=== PATIENT | male | born 1970 | race Caucasian/White ===

== ENCOUNTER 2017-11-15 17:07 | Emergency (ER) | payer BC, OTHER ==
[2017-11-15 17:22] VITALS: BP 130/79; PULSE 94; TEMP 100.3; BMI 25.8
[2017-11-15] MEDS ORDERED: KETOROLAC TROMETHAMINE 60 MG/2 ML VIAL IM ONE (18:30)
[2017-11-15] MEDS ORDERED: KETOROLAC TROMETHAMINE 60 MG/2 ML VIAL ONE (18:32)
--- NOTE | 2017-11-15 18:35 | PDOC ---
History of Present Illness - General Chief Complaint: Respiratory Stated Complaint: CHILLS, FEVER, CHEST PAIN Time Seen by Provider: 11/15/17 18:15 History Source: Patient Exam Limitations: No Limitations - History of Present Illness Initial Comments: 11/15/17 18:30 Patient states daughter was diagnosed with influenza last week, was prescribed Tamiflu but did not take it because family was worried about side effects. Patient stated had onset of symptoms himself yesterday with fevers, chills, sore throat pain. Moist cough and significant body pain started today. States was seen at [place] [facility] yesterday was flu and strep tested which results were negative. Patient has taken Tylenol but states symptoms are worsening. Timing/Duration: reports: other, getting worse Severity: reports: mild, moderate Associated Symptoms: reports: chest pain/soreness, cough, facial pain, fever/ chills, muscle aches, nasal congestion, nasal drainage Past History - Travel Traveled outside of the country in the last 30 days: No Close contact w/someone who was outside of country & ill: No - Past Medical History Allergies/Adverse Reactions: Allergies Allergy/AdvReac Type Severity Reaction Status Date / Time hydromorphone HCl Allergy Verified 11/15/17 17:21 [From Dilaudid] Home Medications: Ambulatory Orders Oseltamivir Phosphate [Tamiflu -] 75 mg PO BID #10 capsule 11/15/17 Anemia: Yes COPD: No GI Disorders: Yes (DIVERTICULITIS.) - Suicide/Smoking/Psychosocial Hx Smoking History: Never smoked Have you smoked in the past 12 months: No If you are a former smoker, when did you quit?: 1997 Information on smoking cessation initiated: No Hx Alcohol Use: No (OCCAISONAL) Drug/Substance Use Hx: No Substance Use Type: None Hx Substance Use Treatment: No Review of Systems - Review of Systems Able to Perform ROS?: Yes Is the patient limited Macedonian proficient: Yes Constitutional: Yes: Symptoms Reported, See HPI, Chills, Fever, Loss of Appetite , Malaise HEENTM: Yes: Symptoms Reported, See HPI, Hearing Loss, Throat Pain Respiratory: Yes: Symptoms reported, See HPI, Cough, Shortness of Breath, Wheezing : No: Symptoms Reported Musculoskeletal: Yes: Symptoms Reported, See HPI Integumentary: Yes: Symptoms Reported, See HPI All Other Systems: Reviewed and Negative *Physical Exam - Vital Signs Last Vital Signs Temp Pulse Resp BP Pulse Ox 100.3 F H 94 H 18 130/79 98 11/15/17 17:15 11/15/17 17:15 11/15/17 17:15 11/15/17 17:15 11/15/17 17:15 - Physical Exam General Appearance: Yes: Nourished, Appropriately Dressed, Apparent Distress, Mild Distress, Moderate Distress HEENT: positive: KIP (glassy), TMs Normal (congested), Pharyngeal Erythema, Nasal Congestion, Rhinorrhea, Sinus Tenderness. negative: Normal ENT Inspection , Pharynx Normal Neck: positive: Supple, Lymphadenopathy (R), Lymphadenopathy (L) Respiratory/Chest: positive: Lungs Clear, Normal Breath Sounds. negative: Wheezing Gastrointestinal/Abdominal: positive: Soft. negative: Tender Musculoskeletal: positive: Normal Inspection Extremity: positive: Normal Capillary Refill, Normal Inspection Integumentary: positive: Dry, Warm, Pale Neurologic: positive: compliance clerk II-XII NML intact, Fully Oriented, Alert, Normal Mood/ Affect, Normal Response, Motor Strength 02/07 Progress Note - Progress Note Progress Note: Upper respiratory infection, probable influenza. We'll treat with Tamiflu *DC/Admit/Observation/Transfer Diagnosis at time of Disposition: Influenzal acute upper respiratory infection - Discharge Dispostion Disposition: HOME Condition at time of disposition: Stable Admit: No - Prescriptions Prescriptions: Oseltamivir Phosphate [Tamiflu -] 75 mg PO BID #10 capsule - Referrals Referrals: Micahel Echols MD [Primary Care Provider] - - Patient Instructions Printed Discharge Instructions: DI for Influenza -- Adult Additional Instructions: Rest, drink lots of fluids: Teas, water, soups, Pedialyte Saltwater gargles Steamy showers/seem to face break up mucus Old-fashioned treatments help! Avoid contact with others until fevers and cough resolved as this is very contagious Lots of handwashing and good hygiene Continue [id number] medications for symptomatic relief Tylenol or Motrin for fever and pain Take all of Tamiflu as directed: 1 tab every 12 hours for 5 days Followup with private physician in one to 2 days as needed or if worsening Return to emergency department for worsened symptoms, fevers, dehydration Influenza takes between 5 and 7 days for resolution To not participate in any activity, work, or school until fevers and cough are gone for at least one day - Post Discharge Activity Forms/Work/School Notes: Back to Work
--- NOTE | 2017-11-19 11:02 | EKG ---
Test Reason : Blood Pressure : / mmHG Vent. Rate : 088 BPM Atrial Rate : 088 BPM P-R Int : 148 ms QRS Dur : 086 ms QT Int : 334 ms P-R-T Axes : 044 022 032 degrees QTc Int : 404 ms NORMAL SINUS RHYTHM NORMAL ECG WHEN COMPARED WITH ECG OF 17-FEB-2015 11:59, NO SIGNIFICANT CHANGE WAS FOUND Confirmed by LIDA ALCALA MD ([id number]) on 11/19/2017 11:02:02 AM Referred By: Confirmed By:LIDA ALCALA MD
== END 2017-11-15 18:38 | disposition home or self-care (01) ==
LOC: JERFT 17:07
DX: J11.1 Influenza due to unidentified influenza virus with other respiratory manifestations (principal)
CPT/HCPCS: 93005; 93010; 99281-25

== ENCOUNTER 2018-03-22 14:09 | Emergency (ER) | payer OTHER ==
--- NOTE | 2018-03-22 14:28 | PDOC ---
History of Present Illness - General Chief Complaint: Electrocution Stated Complaint: . Time Seen by Provider: 03/22/18 14:27 - History of Present Illness Initial Comments: 03/22/18 14:32 Mr. Her is a 47 yo male w/ pmh of colitis who presents for evaluation after being electrocuted earlier today. Patient reports he was working in the attic when a wire he thought was off hit him in the back. He did not lose consciousness however reports he is currently very weak. He reports this wire was from a fan and was likely 120V, AC. Mr. Her reports he currently has midline chest pain and back pain in the same location. The patient denies chest pain, shortness of breath, headache and dizziness. Denies fever, chills, nausea, vomit, diarrhea and constipation. Denies dysuria, frequency, urgency and hematuria. Allergies: Hydromorphone. Past History - Past Medical History Allergies/Adverse Reactions: Allergies Allergy/AdvReac Type Severity Reaction Status Date / Time hydromorphone HCl Allergy Verified 11/15/17 17:21 [From Dilaudid] Home Medications: Ambulatory Orders NK [No Known Home Medication] 03/22/18 Anemia: Yes COPD: No GI Disorders: Yes (DIVERTICULITIS.) - Suicide/Smoking/Psychosocial Hx Smoking History: Never smoked Have you smoked in the past 12 months: No If you are a former smoker, when did you quit?: 1997 Hx Alcohol Use: No (OCCAISONAL) Drug/Substance Use Hx: No Substance Use Type: None Hx Substance Use Treatment: No Review of Systems - Review of Systems Comments:: 03/22/18 14:36 GENERAL/CONSTITUTIONAL: No fever or chills. No weakness. HEAD, EYES, EARS, NOSE AND THROAT: No change in vision. No ear pain or discharge. No sore throat. CARDIOVASCULAR: No chest pain or shortness of breath RESPIRATORY: No cough, wheezing, or hemoptysis. GASTROINTESTINAL: No nausea, vomiting, diarrhea or constipation. GENITOURINARY: No dysuria, frequency, or change in urination. MUSCULOSKELETAL: No joint or muscle swelling or pain. No neck or back pain. SKIN: No rash NEUROLOGIC: No headache, vertigo, loss of consciousness, or change in strength/ sensation. ENDOCRINE: No increased thirst. No abnormal weight change HEMATOLOGIC/LYMPHATIC: No anemia, easy bleeding, or history of blood clots. ALLERGIC/IMMUNOLOGIC: No hives or skin allergy. *Physical Exam - Physical Exam Comments: 03/22/18 14:36 GENERAL: Awake, alert, and fully oriented, in no acute distress HEAD: No signs of trauma, normocephalic, atraumatic EYES: PERRLA, EOMI, sclera anicteric, conjunctiva clear ENT: Auricles normal inspection, hearing grossly normal, nares patent, oropharynx clear without exudates. Moist mucosa NECK: Normal ROM, supple, no lymphadenopathy, JVD, or masses LUNGS: +Midline chest pain. T4 tenderness to back. No distress, speaks full sentences, clear to auscultation bilaterally HEART: Regular rate and rhythm, normal S1 and S2, no murmurs, rubs or gallops, peripheral pulses normal and equal bilaterally. ABDOMEN: Soft, nontender, normoactive bowel sounds. No guarding, no rebound. No masses EXTREMITIES: Normal inspection, Normal range of motion, no edema. No clubbing or cyanosis. NEUROLOGICAL: Cranial nerves II through XII grossly intact. Normal speech, normal gait, no focal sensorimotor deficits SKIN: Warm, Dry, normal turgor, no rashes or lesions noted. ED Treatment Course - LABORATORY CBC & Chemistry Diagram: 03/22/18 14:48 03/22/18 14:48 Medical Decision Making - Medical Decision Making 03/22/18 15:15 Mr. Her is a 47 yo male w/ pmh as described who presents for evaluation post electrocution. Patient currently reporting midline chest pain and back pain as described. Due to concerns of unknown damage post electrocution, patient transfer initiated to [facility]. Patient currently accepted to [facility], patient workup started otherwise with XR imaging and basic labs. Fluids running at 200ml /hr ( 1L) per request of [facility] physician. *DC/Admit/Observation/Transfer Diagnosis at time of Disposition: Electrocution - Discharge Dispostion Disposition: TRANSFER ACUTE CARE/OTHER HOSP Condition at time of disposition: Guarded - Referrals Referrals: Michael Echols MD [Primary Care Provider] - - Patient Instructions - Post Discharge Activity
[2018-03-22 14:29] VITALS: BMI 25.0
[2018-03-22] MEDS ORDERED: SODIUM CHLORIDE 1,000 ML IV STA (14:31)
--- NOTE | 2018-03-22 14:50 | PDOC ---
Attending Attestation - Resident Resident Name: Rene Morgan - ED Attending Attestation I have performed the following: I have examined & evaluated the patient, The case was reviewed & discussed with the resident, I agree w/resident's findings & plan, Exceptions are as noted - Critical Care Time Total Critical Care Time: 30 Critical Care Statement: The care of this patient involved high complexity decision making to prevent further life threatening deterioration of the patient 's condition and/or to evaluate & treat vital organ system(s) failure or risk of failure. - Medical Decision Making 03/22/18 14:50 I, Dr. Britany Eaton, DO, attest that this document has been prepared under my direction and personally reviewed by me in its entirety. I further attest, that it accurately reflects all work, treatment, procedures and medical decision -making performed by me. 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 -will monitor on tele -pain control -ivf hydration -no head injury, no loc, but appears mildly "out of it" 03/22/18 15:[address] Melo from [facility] BURN recommends labs, ua, tele, xrays accepts pt in transfer to ED 03/22/18 15:45 EMS here for transfer cbc reviewed other labs are pending <Britany Eaton - Last Filed: 03/22/18 15:45> - HPI HPI: 03/22/18 16:02 The patient is a 47 year old male with a significant PMH of colitis who presents to the emergency department s/p electrocution earlier today. The patient reports that he was at home removing a screw from a ceiling fan when he was electrocuted on his back by one of the wires hanging from the fan. The patient reports that he didnt realize that the light power was still on when he was fixing it. The patient denies any loc, weakness, numbness or tingling sensation. He states that he is now experiencing chest pain and back pain. He denies any other symptoms. He denies fever, chills, nausea, vomit, diarrhea, constipation or urinary symptoms. He denies shortness of breath, headache and dizziness. The patient denies any other complaints. Allergies: Hydromorphone. PCP: [facility] - Physicial Exam PE: 03/22/18 16:02 As per resident note. Documentation prepared by Geeta Bull, acting as medical appliance maker for Britany Eaton MD. <Geeta Bull - Last Filed: 03/22/18 16:03> Discharge Disposition - Discharge Dispostion Last Admission D/C Date: 02/20/15 - Transfer to Acute Care Facility Receiving Facility: [facility]. Accepting Physician:: Dr. Melo <Britany Eaton - Last Filed: 03/22/18 15:45> <Geeta Bull - Last Filed: 03/22/18 16:03> - Diagnosis Electrocution - Discharge Dispostion Disposition: TRANSFER ACUTE CARE/OTHER HOSP Condition at time of disposition: Guarded - Referrals Referrals: Michael Echols MD [Primary Care Provider] - - Patient Instructions - Post Discharge Activity Heart Score/ECG Review - ECG Intrepretation Comment:: 03/22/18 15:08 sinus at 80, nl axis, nl interval, no acute st/t wave findings <Britany Eaton - Last Filed: 03/22/18 15:45>
[2018-03-22 14:55] LABS: HEMATOCRIT 43.6 % (35.4-49); HEMOGLOBIN 14.6 GM/dL (11.7-16.9); LYMPH % 37.8 % (8-40); MCHC 33.6 g/dl (32.0-35.9); MEAN CELL VOLUME 89.4 fl (80-96); MEAN PLT VOLUME 9.3 fl (7.5-11.1); MONO % 6.8 % (3.8-10.2); NEUT % 53.4 % (42.8-82.8); PLATELET COUNT 221 K/MM3 (134-434); RBC 4.88 M/mm3 (4.00-5.60); RDW 13.2 % (11.9-15.9); WHITE BLOOD COUNT 6.7 K/mm3 (4.0-10.0)
[2018-03-22] MEDS ORDERED: ACETAMINOPHEN 1000 MG/100 ML VIAL (NON FORMULARY) IVPB ONE (14:56)
[2018-03-22] MEDS ORDERED: ACETAMINOPHEN INJECTION 100 ML IVPB ONE (14:57)
[2018-03-22 15:34] LABS: URINE APPEARANCE CLEAR; URINE BILIRUBIN NEGATIVE (<2.0 mg/dL); URINE COLOR YELLOW; URINE GLUCOSE (UA) NEGATIVE (NEGATIVE); URINE KETONE NEGATIVE (NEGATIVE); URINE LEUK ESTERASE NEGATIVE (NEGATIVE); URINE NITRITE NEGATIVE (NEGATIVE); URINE PROTEIN NEGATIVE (NEGATIVE); URINE UROBILINOGEN NEGATIVE mg/dL (0.2-1.0)
[2018-03-22 15:51] VITALS: TEMP 98.1
[2018-03-22 15:56] LABS: ANION GAP 7 (8-16); BILIRUBIN,TOTAL 0.8 mg/dL (0.2-1.0); BLOOD UREA NITROGEN 20 mg/dL (7-18); CALCIUM 8.8 mg/dL (8.5-10.1); CHLORIDE 103 mmol/L (98-107); CO2 29 mmol/L (21-32); CREATININE 1.1 mg/dL (0.7-1.3); GLUCOSE,RANDOM 126 mg/dL (74-106); POTASSIUM 3.7 mmol/L (3.5-5.1); SGOT/AST 22 U/L (15-37); SGPT/ALT 36 U/L (12-78); SODIUM 139 mmol/L (136-145); TOT PROT 7.3 g/dl (6.4-8.2)
[2018-03-22] MEDS: SODIUM CHLORIDE 1,000 ML IV SCH ×2 (15:57→16:04)
[2018-03-22 15:58] LABS: ALK PHOS 45 U/L (45-117)
[2018-03-22 16:00] VITALS: BP 121/68; PULSE 71
--- NOTE | 2018-03-22 19:40 | EKG ---
Test Reason : Blood Pressure : / mmHG Vent. Rate : 080 BPM Atrial Rate : 080 BPM P-R Int : 148 ms QRS Dur : 090 ms QT Int : 376 ms P-R-T Axes : 046 031 049 degrees QTc Int : 433 ms NORMAL SINUS RHYTHM WITH SINUS ARRHYTHMIA NORMAL ECG WHEN COMPARED WITH ECG OF 15-NOV-2017 17:17, NO SIGNIFICANT CHANGE WAS FOUND Confirmed by LIDA ALCALA MD ([id number]) on 03/22/2018 7:39:53 PM Referred By: Confirmed By:LIDA ALCALA MD
== END 2018-03-22 16:00 | disposition short-term general hospital (02) ==
LOC: JER 14:09
PROC: 3E0337Z Introduction of Electrolytic and Water Balance Substance into Peripheral Vein, Percutaneous Approach (ICD-10-PCS; principal; 2018-03-22)
PROC: 3E033NZ Introduction of Analgesics, Hypnotics, Sedatives into Peripheral Vein, Percutaneous Approach (ICD-10-PCS; 2018-03-22)
DX: T75.4XXA Electrocution, initial encounter (principal); W86.0XXA Exposure to domestic wiring and appliances, initial encounter; Y93.89 Activity, other specified; Y92.018 Other place in single-family (private) house as the place of occurrence of the external cause; Y99.8 Other external cause status
CPT/HCPCS: 36415; 71045-TC-FY; 72070-TC-FY; 80053; 81003; 82550; 84484; 85025; 93005; 93010; 99285-25; J0131; J7030

== ENCOUNTER 2018-07-09 01:30 | Observation (INO) | payer OTHER ==
--- NOTE | 2018-07-09 01:58 | PDOC ---
History of Present Illness - General Chief Complaint: Syncope/Near Syncope Stated Complaint: SYNCOPE, CHEST PAIN Time Seen by Provider: 07/09/18 01:43 - History of Present Illness Initial Comments: 07/09/18 01:55 47-year-old male with no significant past medical history BIBEMS to the emergency Department with chest discomfort and syncopal episode. Patient reports he was sleeping about an hour and a half ago when he woke up, began to feel palpitations, and went to the bathroom and sat on the toilet. The patient reports the next thing he remembers is waking up face down on the ground. His reports hearing a loud that in the bathroom and finding her face down on the bathroom floor. She reports he had LOC for a little bit less than a minute. Denies any urinary incontinence or stool incontinence. Denies any shaking movements. Denies any tongue biting. Patient reports since falling he's had nasal pain as well as continued left-sided chest discomfort. Denies headache before or after LOC. Per EMS the patient was hypotensive to the 80s systolic in the field, with improvement in the 90s systolic after initiating a bolus of fluids. The patient denies any similar symptoms in the past. Has been on a new pain medication for back pain but does not know which one. Denies any recent travel. 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 Denies any recent fevers or chills. Denies coughing. Denies dizziness, nausea, vomiting. Denies abdominal pain. Denies lower extremity edema or calf pain. Denies any drug or tobacco use. Past History - Past Medical History Allergies/Adverse Reactions: Allergies Allergy/AdvReac Type Severity Reaction Status Date / Time hydromorphone HCl Allergy Verified 07/09/18 04:47 [From Dilaudid] Home Medications: Ambulatory Orders NK [No Known Home Medication] 03/22/18 Anemia: Yes COPD: No GI Disorders: Yes (DIVERTICULITIS.) - Suicide/Smoking/Psychosocial Hx Smoking History: Never smoked Have you smoked in the past 12 months: No If you are a former smoker, when did you quit?: 1997 Hx Alcohol Use: No (OCCAISONAL) Drug/Substance Use Hx: No Substance Use Type: None Hx Substance Use Treatment: No Review of Systems - Review of Systems Comments:: 07/09/18 02:13 GENERAL/CONSTITUTIONAL: No fever or chills. No weakness. HEAD, EYES, EARS, NOSE AND THROAT: No change in vision. No ear pain or discharge. No sore throat. GASTROINTESTINAL: No nausea, vomiting, diarrhea or constipation. GENITOURINARY: No dysuria, frequency, or change in urination. CARDIOVASCULAR: +chest pain, no shortness of breath. +palpitations RESPIRATORY: No cough, wheezing, or hemoptysis. MUSCULOSKELETAL: No joint or muscle swelling or pain. No neck or back pain. SKIN: No rash NEUROLOGIC: No headache, vertigo, or change in strength/sensation. +LOC ENDOCRINE: No increased thirst. No abnormal weight change. HEMATOLOGIC/LYMPHATIC: No anemia, easy bleeding, or history of blood clots. ALLERGIC/IMMUNOLOGIC: No hives or skin allergy. *Physical Exam - Physical Exam Comments: 07/09/18 02:32 GENERAL: Awake, alert, and fully oriented, in no acute distress HEAD: +mild nasal bridge edema EYES: PERRLA, EOMI, sclera anicteric, conjunctiva clear ENT: Auricles normal inspection, hearing grossly normal, nares patent, oropharynx clear without exudates. Moist mucosa NECK: c-collar in place LUNGS: Breath sounds equal, clear to auscultation bilaterally. No wheezes, and no crackles HEART: Regular rate and rhythm, normal S1 and S2, no murmurs, rubs or gallops ABDOMEN: Soft, nontender, normoactive bowel sounds. No guarding, no rebound. No masses EXTREMITIES: Normal range of motion, no edema. No clubbing or cyanosis. No cords , erythema, or tenderness BACK: No midline spinal tenderness in cervical/thoracic/lumbar region NEUROLOGICAL: Normal speech, cranial nerves intact, negative pronator drift, 5/ 5 strength in all 4 extremities, normal sensation to light touch in all 4 extremities, normal cerebellar exam, normal gait, normal reflexes and tone SKIN: Warm, Dry, normal turgor, no rashes or lesions noted. Heart Score/ECG Review #1 07/09/18 02:41 Twelve-lead EKG was performed and reviewed by me. Sinus bradycardia, rate 52. Normal axis and intervals. No ST elevations or T-wave inversions. ED Treatment Course - LABORATORY CBC & Chemistry Diagram: 07/09/18 04:32 07/09/18 04:32 - RADIOLOGY Radiology Studies Ordered: Category Date Time Status CERVICAL SPINE CT W/O CONTR [CT] Stat CT Scan 07/09/18 01:53 Ordered CHEST CTA [CT] Stat CT Scan 07/09/18 01:[address] W/O CONTRAST [CT] Stat CT Scan 07/09/18 01:[address] WITHOUT CONTRAST [CT] Stat CT Scan 07/09/18 01:53 Ordered CHEST X-RAY PORTABLE* [RAD] Stat Radiology 07/09/18 01:54 Ordered Medical Decision Making - Medical Decision Making 07/09/18 02:42 47yo M presents to the ED with palpitations, followed by syncopal episode. Initially hypotensive in the field, now BP in 100s systolic. Exam with some nasal bridge edema, and pt in c-collar, otherwise wnl. Story concerning for arrhythmia causing syncope given preceding palpitations. 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 Will obtain CTA. WIll do trauma w/u, check labs, and admit for cardiac monitoring. 07/09/18 07:29 CTH, facial bones negative CT c-spine and CTA chest pending Pt stable overnight, awaiting remainder of studies prior to admission Case signed out to day attending for f/u on diagnostics and dispo *DC/Admit/Observation/Transfer Diagnosis at time of Disposition: Chest pain, Palpitations, Syncope - Discharge Dispostion Condition at time of disposition: Fair - Referrals - Patient Instructions - Post Discharge Activity - Attestations Physician Attestion: 07/09/18 07:31 I, Dr. Kali Knott MD, attest that this document has been prepared under my direction and personally reviewed by me in its entirety. I further attest, that it accurately reflects all work, treatment, procedures and medical decision -making performed by me.
[2018-07-09 04:42] LABS: BASO % 0.2 % (0-2.0); EOS % 0.5 % (0-4.5); HEMOGLOBIN 13.8 GM/dL (11.7-16.9); LYMPH % 14.7 % (8-40); MCH 29.9 pg (25.7-33.7); MCHC 33.6 g/dl (32.0-35.9); MEAN PLT VOLUME 9.5 fl (7.5-11.1); MONO % 5.2 % (3.8-10.2); NEUT % 79.4 % (42.8-82.8); PLATELET COUNT 184 K/MM3 (134-434); RBC 4.61 M/mm3 (4.00-5.60); RDW 13.2 % (11.9-15.9); WHITE BLOOD COUNT 9.9 K/mm3 (4.0-10.0)
[2018-07-09 05:18] LABS: ALBUMIN 3.5 g/dl (3.4-5.0); ALK PHOS 38 U/L (45-117); ANION GAP 6 MMOL/L (8-16); BILIRUBIN,TOTAL 0.4 mg/dL (0.2-1); BLOOD UREA NITROGEN 22 mg/dL (7-18); CALCIUM 8.2 mg/dL (8.5-10.1); CHLORIDE 107 mmol/L (98-107); CO2 26 mmol/L (21-32); CREATININE 0.9 mg/dL (0.55-1.3); GLUCOSE,RANDOM 123 mg/dL (74-106); MAGNESIUM 2.1 mg/dL (1.8-2.4); POTASSIUM 3.8 mmol/L (3.5-5.1); SGOT/AST 20 U/L (15-37); SGPT/ALT 25 U/L (13-61); SODIUM 139 mmol/L (136-145); TOT PROT 6.4 g/dl (6.4-8.2)
[2018-07-09] MEDS ORDERED: ACETAMINOPHEN 1000 MG/100 ML VIAL (NON FORMULARY) IVPB ONE (07:34)
[2018-07-09] MEDS ORDERED: ACETAMINOPHEN INJECTION 100 ML IVPB ONE (08:48)
[2018-07-09] MEDS ORDERED: KETOROLAC TROMETHAMINE 30 MG/1 ML VIAL IVPUSH ONE (11:56)
[2018-07-09] MEDS ORDERED: KETOROLAC TROMETHAMINE 30 MG/1 ML VIAL ONE (12:04)
--- NOTE | 2018-07-09 12:48 | HP ---
CHIEF COMPLAINT: syncope, chest pain PCP: HISTORY OF PRESENT ILLNESS: Patient is a 47 year old male with a significant past medical history of chronic back pain. He presents to the ED today for chest discomfort and a syncopal episode. Patient reports that he began to feel his heart palpitating early today and went to the bathroom and sat on the toilet. He had a small BM but does not remember anything after that. The next thing he does remembers was waking up face down and hearing his tell him that she called EMS. Denies any shaking or tremors. Denies incontinence, denies any tongue biting. Patient reports since falling he's had nasal pain as well as continued left- sided chest discomfort. Per EMS the patient was hypotensive to the 80s systolic in the field, with improvement in the 90s systolic after a bolus of fluids. Denies any recent travel. Denies any recent fevers or chills. 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 ER course was notable for: (1) negative trop (2) negative for PE (3) Recent Travel: none PAST MEDICAL HISTORY: Social History: Smoking: n/a Alcohol: n/a Drugs: n/a Family History: Allergies hydromorphone HCl [From Dilaudid] Allergy (Verified 07/09/18 04:47) HOME MEDICATIONS: Home Medications Medication Instructions Recorded Celecoxib 200 mg PO DAILY 07/09/18 REVIEW OF SYSTEMS CONSTITUTIONAL: Absent: fever, chills, diaphoresis, generalized weakness, malaise, loss of appetite, weight change HEENT: Absent: rhinorrhea, nasal congestion, throat pain, throat swelling, difficulty swallowing, mouth swelling, ear pain, eye pain, visual changes CARDIOVASCULAR: Absent: lightheadedness, peripheral edema RESPIRATORY: Absent: dyspnea with exertion, orthopnea, wheezing, stridor, hemoptysis GASTROINTESTINAL: Absent: abdominal pain, abdominal distension, nausea, vomiting, diarrhea, constipation, melena, hematochezia GENITOURINARY: Absent: dysuria, frequency, urgency, hesitancy, hematuria, flank pain, genital pain MUSCULOSKELETAL: Absent: myalgia, arthralgia, joint swelling, back pain, neck pain SKIN: Absent: rash, itching, pallor HEMATOLOGIC/IMMUNOLOGIC: Absent: easy bleeding, easy bruising, lymphadenopathy, frequent infections ENDOCRINE: Absent: unexplained weight loss, heat intolerance, cold intolerance NEUROLOGIC: Absent: headache, focal weakness or paresthesias, dizziness, unsteady gait, seizure, mental status changes, bladder or bowel incontinence PSYCHIATRIC: Absent: anxiety, depression, suicidal or homicidal ideation, hallucinations. PHYSICAL EXAMINATION Vital Signs - 24 hr 07/09/18 07/09/18 07/09/18 01:55 04:33 07:02 Temperature 97.4 F L 98.4 F Pulse Rate 55 L Pulse Rate [ 70 103 H Left Radial] Respiratory 18 19 21 H Rate Blood Pressure 107/78 Blood Pressure 124/76 112/82 [Right Arm] O2 Sat by Pulse 100 98 94 L Oximetry (%) GENERAL: Awake, alert, and fully oriented, in no acute distress. HEAD: Normal with no signs of trauma. EYES: Pupils equal, round and reactive to light, extraocular movements intact, sclera anicteric, conjunctiva clear. No lid lag. EARS, NOSE, THROAT: Ears normal, nares patent, oropharynx clear without exudates. Moist mucous membranes. NECK: Normal range of motion, supple without lymphadenopathy, JVD, or masses. LUNGS: Breath sounds equal, clear to auscultation bilaterally. No wheezes, and no crackles. No accessory muscle use. HEART: Regular rate and rhythm, normal S1 and S2 without murmur, rub or gallop. ABDOMEN: Soft, nontender, not distended, normoactive bowel sounds, no guarding, no rebound, no masses. No hepatomegaly or splenomegaly. MUSCULOSKELETAL: Normal range of motion at all joints. No bony deformities or tenderness. No CVA tenderness. UPPER EXTREMITIES: 2+ pulses, warm, well-perfused. No cyanosis. No clubbing. No peripheral edema. LOWER EXTREMITIES: 2+ pulses, warm, well-perfused. No calf tenderness. No peripheral edema. NEUROLOGICAL: Cranial nerves II-XII intact. Normal speech. Normal gait. PSYCHIATRIC: Cooperative. Good eye contact. Appropriate mood and affect. SKIN: Warm, dry, normal turgor, no rashes or lesions noted, normal capillary refill. Laboratory Results - last 24 hr 07/09/18 07/09/18 07/09/18 04:32 04:32 04:32 WBC 9.9 RBC 4.61 Hgb 13.8 Hct 41.0 MCV 89.0 MCH 29.9 MCHC 33.6 RDW 13.2 Plt Count 184 MPV 9.5 Absolute Neuts (auto) 7.9 Neutrophils % 79.4 D Lymphocytes % 14.7 D Monocytes % 5.2 Eosinophils % 0.5 Basophils % 0.2 Nucleated RBC % 0 Sodium 139 Potassium 3.8 Chloride 107 Carbon Dioxide 26 Anion Gap 6 L BUN 22 H Creatinine 0.9 Creat Clearance w eGFR > 60 Random Glucose 123 H Calcium 8.2 L Magnesium 2.1 Total Bilirubin 0.4 AST 20 ALT 25 Alkaline Phosphatase 38 L Troponin I < 0.02 B-Natriuretic Peptide 19.2 Total Protein 6.4 Albumin 3.5 TSH 1.33 07/09/18 12:02 WBC RBC Hgb Hct MCV MCH MCHC RDW Plt Count MPV Absolute Neuts (auto) Neutrophils % Lymphocytes % Monocytes % Eosinophils % Basophils % Nucleated RBC % Sodium Potassium Chloride Carbon Dioxide Anion Gap BUN Creatinine Creat Clearance w eGFR Random Glucose Calcium Magnesium Total Bilirubin AST ALT Alkaline Phosphatase Troponin I < 0.02 B-Natriuretic Peptide Total Protein Albumin TSH Imaging ekg: NSR, normal no ST elevations chest xray: clear lungs CTA: no PE CT head: no acute pathology ASSESSMENT/PLAN: Patient is a 47 year old male with a significant past medical history of chronic back pain. He presents to the ED today for chest discomfort and a syncopal episode. Patient reports that he began to feel his heart palpitating early today and went to the bathroom and sat on the toilet. He had a small BM but does not remember anything after that. The next thing he does remembers was waking up face down and hearing his tell him that she called EMS. Denies any shaking or tremors. Denies incontinence, denies any tongue biting. Patient reports since falling he's had nasal pain as well as continued left- sided chest discomfort. Per EMS the patient was hypotensive to the 80s systolic in the field, with improvement in the 90s systolic after a bolus of fluids. Denies any recent travel. Denies any recent fevers or chills. 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 Syncope and collapse Chest pain ekg within normal limits trend trops echo stress test telemonitoring carotid doppler fen fredi
[2018-07-09] MEDS ORDERED: LIDOCAINE 5% TOPICAL PATCH TP ONE (15:58)
--- NOTE | 2018-07-09 16:57 | CON.CARD ---
Consult Consult Specialty:: cardio - History of Present Illness Chief Complaint: syncope History of Present Illness: 47 yo male here with syncope. he woke up in bed feeling heart rapidly beating--regular, no skipping. strong/bounding heartbeat. lay in bed like that for a minute or few minutes--palpitations still ongoing. got up to go to bathroom. sat on toilet and recalls urinating--woke up on floor with over him, near the toilet, with her saying EMS is on its way. began having similar palpitations around age 20, in the . seen by doctos who "didn't find anything" per pt, no meds. father has heart dz, ? similar problem--palpitations/rapid heartbeat, on meds. no ICD or CHF. pt denies family hx of sudden or known chf/heart dz. father and grandmother of CEREBRAL ANEURYSM he never passed out before this. but once he was driving and felt very LH, vision started to go dark--resolved promptly. 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 no cp, sob associated with any of these episodes. never has sx's during exercise including no paliptations or presyncope/syncope. has had L/S region muscle pain, pmd (apuzzo) gave analgesic patch and celecoxib which pt started yesterday PMH: denies htn, hpl, dm no cigs, drugs, etoh abuse - Past Medical History Gastrointestinal: Yes: Diverticulosis, Other (POSSIBLE COLITIS) - Alcohol/Substance Use Hx Alcohol Use: No (OCCAISONAL) - Smoking History Smoking history: Never smoked Have you smoked in the past 12 months: No If you are a former smoker, when did you quit?: 1997 Home Medications - Allergies Allergies/Adverse Reactions: Allergies Allergy/AdvReac Type Severity Reaction Status Date / Time hydromorphone HCl Allergy Verified 07/09/18 04:47 [From Dilaudid] - Home Medications Home Medications: Ambulatory Orders Celecoxib 200 mg PO DAILY 07/09/18 Family Disease History - Family Disease History Family Disease History: Diabetes: Father, Mother, Other: Grandparent (Colitis) Review of Systems - Review of Systems Constitutional: denies: Chills, Fever Eyes: denies: Eye Pain HENT: denies: Nasal Congestion Neck: denies: Stiffness Cardiovascular: denies: Edema Respiratory: denies: Orthopnea, PND Gastrointestinal: denies: Diarrhea, Rectal Bleeding Genitourinary: denies: Burning, Hematuria Musculoskeletal: denies: Muscle Pain Integumentary: denies: Rash Neurological: denies: Change in Speech, Numbness, Seizure Endocrine: denies: Excessive Sweating Hematology/Lymphatic: denies: Excessive Bleeding Vital Signs: Vital Signs Temperature 98.8 F 07/09/18 15:39 Pulse Rate 69 07/09/18 15:39 Respiratory Rate 18 07/09/18 15:39 Blood Pressure 113/71 07/09/18 15:39 O2 Sat by Pulse Oximetry (%) 96 07/09/18 15:39 Constitutional: Yes: Well Nourished, No Distress Eyes: No: Sclera Icterus HENT: No: Nasal Congestion Neck: No: Decreased ROM Respiratory: Yes: CTA Bilaterally. No: Accessory Muscle Use Gastrointestinal: Yes: Normal Bowel Sounds. No: Distention, Hepatomegaly, Palpable Mass, Tenderness Cardiovascular: Yes: Regular Rate and Rhythm JVD: No Carotid Bruit: No PMI: Non-Displaced Heart Sounds: Yes: S1, S2. No: Gallop Murmur: No: Systolic Murmur, Diastolic Murmur Musculoskeletal: Yes: Other (No kyphosis) Extremities: No: Cool, Cyanosis Edema: No Peripheral Pulses: 2+ Left Carotid, 2+ Right Carotid, 2+ Left Doralis Pedis, 2+ Right Dorsalis Pedis Integumentary: No: Jaundice Neurological: Yes: Alert, Oriented (x3) Psychiatric: No: Agitated - Other Data Labs, Other Data: CBC, BMP 07/09/18 04:32 07/09/18 04:32 Troponin, BNP 07/09/18 07/09/18 07/09/18 04:32 04:32 12:02 Troponin I < 0.02 < 0.02 B-Natriuretic Peptide 19.2 Troponin, BNP 07/09/18 07/09/18 07/09/18 04:32 04:32 12:02 Troponin I < 0.02 < 0.02 B-Natriuretic Peptide 19.2 Laboratory Tests 07/09/18 07/09/18 07/09/18 04:32 04:32 04:32 WBC 9.9 Hgb 13.8 Plt Count 184 Sodium 139 Potassium 3.8 Carbon Dioxide 26 BUN 22 H Creatinine 0.9 AST 20 ALT 25 Troponin I < 0.02 B-Natriuretic Peptide 19.2 07/09/18 12:02 WBC Hgb Plt Count Sodium Potassium Carbon Dioxide BUN Creatinine AST ALT Troponin I < 0.02 B-Natriuretic Peptide Assessment/Plan ECG: NSR, normal axis/intervals including QTc. no q waves, no ST-Ts. no Brugada or ARVC features CXR: clear lungs CTA chest: no PE CT head: no acute pathology syncope: -normal ECG incl normal intervals -trop neg x 2 -episode preceded by palpitations with rapid heartbeat for at least couple of minutes--? palpitations ONGOING at time of syncope -this history, plus no prodrome to the syncope, raises possibility of ventricular arrhthmia. -father with unknown arrhythmia history but apparently no malignant features -pt needs echo for EF and RV appearance, for risk stratification before he can be discharged -continue telemetry monitoring overnight -recommend ETT to rule out catecholaminergic sensitive/provocable VT -if echo and ETT, and tele benign--will arrange outpt 30 day patch or loop recorder
[2018-07-09] MEDS ORDERED: ASPIRIN COATED 81 MG TABLET.EC ONE (17:04)
[2018-07-09] MEDS ORDERED: LIDOCAINE 5% TOPICAL PATCH ONE (17:04)
[2018-07-09] MEDS: ASPIRIN COATED 81 MG TABLET.EC PO SCH (17:09)
--- NOTE | 2018-07-09 21:55 | EKG ---
Test Reason : Blood Pressure : / mmHG Vent. Rate : 052 BPM Atrial Rate : 052 BPM P-R Int : 162 ms QRS Dur : 098 ms QT Int : 442 ms P-R-T Axes : 051 026 036 degrees QTc Int : 411 ms SINUS BRADYCARDIA OTHERWISE NORMAL ECG WHEN COMPARED WITH ECG OF 22-MAR-2018 14:18, VENT. RATE HAS DECREASED BY 28 BPM Confirmed by BEENA ALVAREZ MD ([id number]) on 07/09/2018 9:55:08 PM Referred By: Confirmed By:BEENA ALVAREZ MD
[2018-07-09] MEDS ORDERED: LIDOCAINE PATCH REMOVAL MC SCH (22:00)
[2018-07-09 22:04] LABS: COCAINE, UR NEGATIVE ng/ml (CUTOFF=300); METHADONE, UR NEGATIVE ng/ml (CUTOFF=300); OPIATES, URI NEGATIVE ng/ml (CUTOFF=300); PHENCYCLIDINE,URINE NEGATIVE ng/ml (CUTOFF=25); URINE AMPHETAMINES NEGATIVE ng/ml (CUTOFF=500); URINE BARBITURATES NEGATIVE ng/ml (CUTOFF=200); URINE BENZODIAZEPINES NEGATIVE ng/ml (CUTOFF=200)
[2018-07-09] MEDS: KETOROLAC TROMETHAMINE 15 MG/ML VIAL IVPUSH PRN (22:55)
[2018-07-09 23:32] VITALS: BMI 25.4
[2018-07-10 07:04] LABS: HEMOGLOBIN 13.5 GM/dL (11.7-16.9)
[2018-07-10 07:24] LABS: BASO % 0.3 % (0-2.0); EOS % 1.6 % (0-4.5); HEMATOCRIT 40.7 % (35.4-49); LYMPH % 31.1 % (8-40); MCH 29.5 pg (25.7-33.7); MCHC 33.1 g/dl (32.0-35.9); MEAN PLT VOLUME 9.9 fl (7.5-11.1); MONO % 8.3 % (3.8-10.2); NEUT % 58.7 % (42.8-82.8); PLATELET COUNT 165 K/MM3 (134-434); RBC 4.57 M/mm3 (4.00-5.60); RDW 13.2 % (11.9-15.9)
[2018-07-10 07:26] LABS: ALBUMIN 3.4 g/dl (3.4-5.0); ALK PHOS 34 U/L (45-117); ANION GAP 6 MMOL/L (8-16); BILIRUBIN,TOTAL 0.8 mg/dL (0.2-1); BLOOD UREA NITROGEN 25 mg/dL (7-18); CHLORIDE 106 mmol/L (98-107); CHOLESTEROL 160 mg/dL (50-200); CO2 28 mmol/L (21-32); CREATININE 0.9 mg/dL (0.55-1.3); GLUCOSE,RANDOM 88 mg/dL (74-106); HDL CHOLESTEROL 39 mg/dL (40-60); MAGNESIUM 2.2 mg/dL (1.8-2.4); SGOT/AST 18 U/L (15-37); SGPT/ALT 25 U/L (13-61); SODIUM 141 mmol/L (136-145); TOT PROT 6.1 g/dl (6.4-8.2); TRIGLYCERIDES 161 mg/dL (0-150)
[2018-07-10] MEDS: KETOROLAC TROMETHAMINE 15 MG/ML VIAL IVPUSH PRN ×2 (09:15→16:54)
--- NOTE | 2018-07-10 10:04 | ECHO ---
Name: CLAIRE HERNÁNDEZ Exam:Adult Echocardiogram Study Date: 07/10/2018 07:42 AM Age: 47 yrs Reason For Study: SYNCOPE Height: 67 in Weight: 160 lb BSA: 1.8 m2 MMode/2D Measurements & Calculations IVSd: 1.1 cm Ao root diam: 3.0 cm LVIDd: 4.0 cm LA dimension: 3.2 cm LVIDs: 2.3 cm LVPWd: 0.85 cm EDV(Teich): 69.1 ml LAV (MOD-bp): 32.7 ml ESV(Teich): 17.9 ml Doppler Measurements & Calculations MV E max fernando: 76.6 cm/sec MR max fernando: 419.7 cm/sec MV A max fernando: 66.0 cm/sec MR max P.0 mmHg MV E/A: 1.2 MV dec time: 0.23 sec TR max fernando: 195.8 cm/sec Med Peak E' Fernando: 9.8 cm/sec TR max P.6 mmHg Med E/e': 7.8 Lat Peak E' Fernando: 15.3 cm/sec Lat E/e': 5.0 PI Vmax: 156.1 cm/sec Left Ventricle Left ventricular systolic function is normal. Ejection Fraction = 60-65%. Left Ventricular Filling pa ttern is normal for age. Right Ventricle The right ventricle is normal in size and function. Atria Normal left and right atrial size and function. Mitral Valve The mitral valve is normal in structure and function. There is no mitral valve stenosis. There is mil d mitral regurgitation. Tricuspid Valve The tricuspid valve is normal in structure and function. There is mild tricuspid regurgitation. Aortic Valve The aortic valve opens well. The aortic valve is trileaflet. No hemodynamically significant valvular aortic stenosis. No aortic regurgitation is present. Pulmonic Valve The pulmonic valve is not well seen, but is grossly normal. There is no pulmonic valvular stenosis. T race to mild pulmonic valvular regurgitation. Great Vessels The aortic root is normal size. Pericardium/Pleura There is no pericardial effusion. Interpretation Summary Left ventricular systolic function is normal. Ejection Fraction = 60-65%. The right ventricle is normal in size and function. There is mild mitral regurgitation. There is mild tricuspid regurgitation. The aortic valve opens well. There is no pericardial effusion. MD Bertrand Barnett 07/10/2018 10:04 AM
--- NOTE | 2018-07-10 13:00 | PN ---
Progress Note (short form) - Note Progress Note: s: felt skipped heart beat this morning lasting a second, otherwise no palps. no chest pain, dizzy, lightheadedness, sob Current Medications Aspirin (Ecotrin -) 81 mg PO DAILY MARION Last Admin: 07/09/18 17:09 Dose: 81 mg Ketorolac Tromethamine (Toradol Injection -) 15 mg IVPUSH Q6H PRN PRN Reason: PAIN LEVEL 7 - 10 Stop: 07/14/18 22:36 Last Admin: 07/10/18 09:15 Dose: 15 mg Vital Signs: Vital Signs Period Temp Pulse Resp BP Sys/Fowler Pulse Ox Last 24 Hr 98 F-98.8 F 61-88 18-20 108-121/60-76 96-100 Constitutional: Yes: Well Nourished, No Distress Eyes: No: Sclera Icterus HENT: No: Nasal Congestion Neck: No: Decreased ROM Respiratory: Yes: CTA Bilaterally. No: Accessory Muscle Use Gastrointestinal: Yes: Normal Bowel Sounds. No: Distention, Hepatomegaly, Palpable Mass, Tenderness Cardiovascular: Yes: Regular Rate and Rhythm JVD: No Carotid Bruit: No PMI: Non-Displaced Heart Sounds: Yes: S1, S2. No: Gallop Murmur: No: Systolic Murmur, Diastolic Murmur Musculoskeletal: Yes: Other (No kyphosis) Extremities: No: Cool, Cyanosis Edema: No Peripheral Pulses: 2+ Left Carotid, 2+ Right Carotid, 2+ Left Doralis Pedis, 2+ Right Dorsalis Pedis Integumentary: No: Jaundice Neurological: Yes: Alert, Oriented (x3) Psychiatric: No: Agitated Assessment/Plan ECG: NSR, normal axis/intervals including QTc. no q waves, no ST-Ts. no Brugada or ARVC features CXR: clear lungs CTA chest: no PE CT head: no acute pathology tele: sinus rhythm syncope: -normal ECG incl normal intervals -trop neg x 2 -episode preceded by palpitations with rapid heartbeat for at least couple of minutes--? palpitations ONGOING at time of syncope -this history, plus no prodrome to the syncope, raises possibility of ventricular arrhythmia. -father with unknown arrhythmia history but apparently no malignant features - echo unremarkable, stress test to rule out catecholaminergic sensitive/ provocable VT is pending -continue telemetry monitoring overnight -if ETT and tele benign--will arrange outpt 30 day patch or loop recorder
--- NOTE | 2018-07-10 14:39 | TRE ---
Protocol Name : JUNE Max Work Load (METS*10) : 101 Time In Exercise Phase : 00:08:03 Max. Systolic BP : 142 mmHg Max Diastolic BP : 80 mmHg Max Heart Rate : 151 BPM Max Predicted Heart Rate : 175 BPM Attending Physician : DR. PEDRO Reason For Termination : Target Heart Rate Achieved Reason for Test : PALPITATIONS WITH SYNCOPE Stress Protocol : JUNE Rest HR : 82 BPM PeakEx METs : 10.1 METS Recovery ECG Response (OLD) : Diagnosis : The patient completed 8:03 of a standard June Protocol achieving a work load of 10 METS. The resting heart rate of 67bpm alfonzo to a peak of 151bpm, 86% of age predicted maximum. The resting BP of 106/78 alfonzo to a peak of 142/80. The test was stopped due to achievement of target heart rate. There were no ischemic ST changes during exercise nor during recovery. No arrhythmias. CONCLUSION: Negative stress ECG. Santana treadmill score of 8 portends an overall low 5 year risk of cardiac events. Low probability of flow limiting coronary artery disease. Asymptomatic during the exam. Normal blood pressure response to exercise. Confirmed by VISHNU PEDRO MD ([id number]) on 07/10/2018 2:38:47 PM
[2018-07-10] MEDS: ASPIRIN COATED 81 MG TABLET.EC PO SCH (14:44)
[2018-07-10] MEDS ORDERED: KETOROLAC TROMETHAMINE 10 MG TABLET PO SCH (18:00)
--- NOTE | 2018-07-10 18:00 | PN ---
Physical Exam: SUBJECTIVE: Patient seen and examined OBJECTIVE: Vital Signs Period Temp Pulse Resp BP Sys/Fowler Pulse Ox Last 24 Hr 98 F-98.3 F 61-88 18-20 108-121/60-76 97-100 GENERAL: The patient is awake, alert, and fully oriented, in no acute distress. HEAD: Normal with no signs of trauma. EYES: PERRL, extraocular movements intact, sclera anicteric, conjunctiva clear. No ptosis. ENT: Ears normal, nares patent, oropharynx clear without exudates, moist mucous membranes. NECK: Trachea midline, full range of motion, supple. LUNGS: Breath sounds equal, clear to auscultation bilaterally, no wheezes, no crackles, no accessory muscle use. HEART: Regular rate and rhythm, S1, S2 without murmur, rub or gallop. ABDOMEN: Soft, nontender, nondistended, normoactive bowel sounds, no guarding, no rebound, no hepatosplenomegaly, no masses. EXTREMITIES: 2+ pulses, warm, well-perfused, no edema. NEUROLOGICAL: Cranial nerves II through XII grossly intact. Normal speech, gait not observed. PSYCH: Normal mood, normal affect. SKIN: Warm, dry, normal turgor, no rashes or lesions noted Laboratory Results - last 24 hr 07/09/18 07/09/18 07/10/18 20:50 23:50 05:30 WBC 7.0 RBC 4.57 Hgb 13.5 Hct 40.7 MCV 89.0 MCH 29.5 MCHC 33.1 RDW 13.2 Plt Count 165 MPV 9.9 Absolute Neuts (auto) 4.1 Neutrophils % 58.7 D Lymphocytes % 31.1 D Monocytes % 8.3 Eosinophils % 1.6 D Basophils % 0.3 Nucleated RBC % 0 Sodium Potassium Chloride Carbon Dioxide Anion Gap BUN Creatinine Creat Clearance w eGFR Random Glucose Hemoglobin A1c % Calcium Magnesium Total Bilirubin AST ALT Alkaline Phosphatase Troponin I < 0.02 Total Protein Albumin Triglycerides Cholesterol Total LDL Cholesterol HDL Cholesterol Opiates Screen Negative Methadone Screen Negative Barbiturate Screen Negative Phencyclidine Screen Negative Ur Amphetamines Screen Negative MDMA (Ecstasy) Screen Negative Benzodiazepines Screen Negative Cocaine Screen Negative U Marijuana (THC) Screen Negative 07/10/18 07/10/18 05:30 05:30 WBC RBC Hgb Hct MCV MCH MCHC RDW Plt Count MPV Absolute Neuts (auto) Neutrophils % Lymphocytes % Monocytes % Eosinophils % Basophils % Nucleated RBC % Sodium 141 Potassium 4.0 Chloride 106 Carbon Dioxide 28 Anion Gap 6 L BUN 25 H Creatinine 0.9 Creat Clearance w eGFR > 60 Random Glucose 88 Hemoglobin A1c % 5.8 Calcium 8.0 L Magnesium 2.2 Total Bilirubin 0.8 AST 18 ALT 25 Alkaline Phosphatase 34 L Troponin I Total Protein 6.1 L Albumin 3.4 Triglycerides 161 H Cholesterol 160 Total LDL Cholesterol 108 H HDL Cholesterol 39 L Opiates Screen Methadone Screen Barbiturate Screen Phencyclidine Screen Ur Amphetamines Screen MDMA (Ecstasy) Screen Benzodiazepines Screen Cocaine Screen U Marijuana (THC) Screen Active Medications Generic Name Dose Route Start Last Admin Trade Name Freq PRN Reason Stop Dose Admin Aspirin 81 mg 07/09/18 16:00 07/10/18 14:44 Ecotrin - PO 81 mg DAILY MARION Administration Ketorolac Tromethamine 15 mg 07/09/18 22:37 07/10/18 16:54 Toradol Injection - IVPUSH 07/14/18 22:36 15 mg Q6H PRN Administration PAIN LEVEL 7 - 10 ASSESSMENT/PLAN:
--- NOTE | 2018-07-10 18:23 | DS ---
Physical Exam: SUBJECTIVE: Patient seen and examined OBJECTIVE: Vital Signs Period Temp Pulse Resp BP Sys/Fowler Pulse Ox Last 24 Hr 97.8 F-98.3 F 61-88 18-20 108-121/60-76 97-100 PHYSICAL EXAM GENERAL: The patient is awake, alert, and fully oriented, in no acute distress. HEAD: Normal with no signs of trauma. EYES: PERRL, extraocular movements intact, sclera anicteric, conjunctiva clear. ENT: Ears normal, nares patent, oropharynx clear without exudates, moist mucous membranes. NECK: Trachea midline, full range of motion, supple. LUNGS: Breath sounds equal, clear to auscultation bilaterally, no wheezes, no crackles, no accessory muscle use. HEART: Regular rate and rhythm, S1, S2 without murmur, rub or gallop. ABDOMEN: Soft, nontender, nondistended, normoactive bowel sounds, no guarding, no rebound, no hepatosplenomegaly, no masses. EXTREMITIES: 2+ pulses, warm, well-perfused, no edema. NEUROLOGICAL: Cranial nerves II through XII grossly intact. Normal speech, gait not observed. PSYCH: Normal mood, normal affect. SKIN: Warm, dry, normal turgor, no rashes or lesions noted. LABS Laboratory Results - last 24 hr 07/09/18 07/09/18 07/10/18 20:50 23:50 05:30 WBC 7.0 RBC 4.57 Hgb 13.5 Hct 40.7 MCV 89.0 MCH 29.5 MCHC 33.1 RDW 13.2 Plt Count 165 MPV 9.9 Absolute Neuts (auto) 4.1 Neutrophils % 58.7 D Lymphocytes % 31.1 D Monocytes % 8.3 Eosinophils % 1.6 D Basophils % 0.3 Nucleated RBC % 0 Sodium Potassium Chloride Carbon Dioxide Anion Gap BUN Creatinine Creat Clearance w eGFR Random Glucose Hemoglobin A1c % Calcium Magnesium Total Bilirubin AST ALT Alkaline Phosphatase Troponin I < 0.02 Total Protein Albumin Triglycerides Cholesterol Total LDL Cholesterol HDL Cholesterol Opiates Screen Negative Methadone Screen Negative Barbiturate Screen Negative Phencyclidine Screen Negative Ur Amphetamines Screen Negative MDMA (Ecstasy) Screen Negative Benzodiazepines Screen Negative Cocaine Screen Negative U Marijuana (THC) Screen Negative 07/10/18 07/10/18 05:30 05:30 WBC RBC Hgb Hct MCV MCH MCHC RDW Plt Count MPV Absolute Neuts (auto) Neutrophils % Lymphocytes % Monocytes % Eosinophils % Basophils % Nucleated RBC % Sodium 141 Potassium 4.0 Chloride 106 Carbon Dioxide 28 Anion Gap 6 L BUN 25 H Creatinine 0.9 Creat Clearance w eGFR > 60 Random Glucose 88 Hemoglobin A1c % 5.8 Calcium 8.0 L Magnesium 2.2 Total Bilirubin 0.8 AST 18 ALT 25 Alkaline Phosphatase 34 L Troponin I Total Protein 6.1 L Albumin 3.4 Triglycerides 161 H Cholesterol 160 Total LDL Cholesterol 108 H HDL Cholesterol 39 L Opiates Screen Methadone Screen Barbiturate Screen Phencyclidine Screen Ur Amphetamines Screen MDMA (Ecstasy) Screen Benzodiazepines Screen Cocaine Screen U Marijuana (THC) Screen HOSPITAL COURSE: Date of Admission:07/09/18 Date of Discharge: 07/10/18 Discharge Summary Reason For Visit: SYNCOPE Current Active Problems Chest pain (Acute) Palpitations (Acute) Syncope (Acute) Condition: Fair - Instructions Referrals: Michael Echols MD [Primary Care Provider] - - Home Medications Comprehensive Discharge Medication List: Ambulatory Orders Celecoxib 200 mg PO DAILY 07/09/18
[2018-07-10 20:17] VITALS: BP 124/74; PULSE 78; TEMP 98.5
[2018-07-10] MEDS ORDERED: ATORVASTATIN CA 40 MG TABLET (FP) PO SCH (22:00)
== END 2018-07-10 20:00 | disposition home or self-care (01) ==
LOC: JER 01:30 → JERBED 09:15 → J4W 22:19
PROVIDERS: ADMIT Internal Medicine; ATTEND Nurse Practitioner Family
PROC: 3E0333Z Introduction of Anti-inflammatory into Peripheral Vein, Percutaneous Approach (ICD-10-PCS; principal; 2018-07-09)
PROC: 3E033NZ Introduction of Analgesics, Hypnotics, Sedatives into Peripheral Vein, Percutaneous Approach (ICD-10-PCS; 2018-07-09)
DX: R42 Dizziness and giddiness (principal); R07.9 Chest pain, unspecified; R00.2 Palpitations
CPT/HCPCS: 36415; 70450-TC; 70486-TC; 70551-TC; 71045-TC-FY; 71275-TC; 72125-TC; 80053; 80061; 80307; 83036; 83721; 83735; 83880; 84443; 84484; 85025; 93005; 93010; 93017; 93018; 93306-TC; 93880-TC; 99285-25; G0378; J0131

== ENCOUNTER 2022-05-24 04:31 | Day surgery (SDC) | payer OTHER ==
[2022-05-22 07:44] VITALS: BMI 26.6
[2022-05-24 10:22] VITALS: PULSE 67
[2022-05-24 11:09] VITALS: BP 110/66; RESP 14
[2022-05-24 14:24] VITALS: TEMP 97.8
== END 2022-05-24 11:00 | disposition home or self-care (01) ==
LOC: JASU-ENDO 04:31
PROVIDERS: ATTEND Internal Medicine Gastroenterology
PROC: 0DBK8ZX Excision of Ascending Colon, Via Natural or Artificial Opening Endoscopic, Diagnostic (ICD-10-PCS; principal; 2022-05-24 10:00)
DX: Z12.11 Encounter for screening for malignant neoplasm of colon (principal); Z86.010 Personal history of colon polyps; D12.2 Benign neoplasm of ascending colon; D12.4 Benign neoplasm of descending colon; K64.8 Other hemorrhoids; K57.30 Diverticulosis of large intestine without perforation or abscess without bleeding
CPT/HCPCS: 88305-TC

== ENCOUNTER 2023-02-19 15:51 | Emergency (ER) | payer OTHER ==
[2023-02-19] MEDS ORDERED: LACTATED RINGERS SOLUTION 1000 ML INFUS.BAG IV ONE (16:00)
[2023-02-19] MEDS ORDERED: FENTANYL CITRATE/PF 50 MCG/ML VIAL ONE ×2 (16:02→16:19)
[2023-02-19 16:16] VITALS: BMI 25.8
[2023-02-19] MEDS ORDERED: morphine CARPU-JECT 4 MG/1 ML DISP.SYRIN IVPUSH ONE (16:39)
[2023-02-19] MEDS ORDERED: morphine SULFATE 4 MG/ML VIAL ONE (16:42)
[2023-02-19] MEDS ORDERED: ONDANSETRON 4 MG/2 ML VIAL IVPUSH ONE (16:45)
[2023-02-19 16:46] LABS: BASO % 0.5 % (0-2.0); EOS % 1.5 % (0-4.5); HEMATOCRIT 40.3 % (35.4-49); HEMOGLOBIN 13.6 GM/dL (11.7-16.9); LYMPH % 50.5 % (8-40); MCHC 33.9 g/dl (32.0-35.9); MEAN CELL VOLUME 88.5 fl (80-96); MEAN PLT VOLUME 9.7 fl (7.5-11.1); MONO % 7.4 % (3.8-10.2); NEUT % 40.1 % (42.8-82.8); PLATELET COUNT 212 10^3/uL (134-434); RBC 4.55 M/mm3 (4.00-5.60); RDW 13.9 % (11.9-15.9)
[2023-02-19] MEDS ORDERED: CEFAZOLIN 2 GM in DEXTROSE 5%-WATER - 50 ML IVPB ONE (16:46)
[2023-02-19] MEDS ORDERED: DIPHTH,PERTUSS(ACELL),TET 0.5 ML DISP.SYRIN IM ONE ×2 (16:47→17:34)
[2023-02-19 16:57] LABS: INR 0.97 (0.83-1.09); PROTHROMBIN TIME (PATIENT) 11.2 SEC (9.7-13.0)
[2023-02-19 17:00] LABS: ACTIVATED PTT 26.1 SECONDS (25.2-36.5)
[2023-02-19 17:05] LABS: POTASSIUM 4.2 mmol/L (3.5-5.1)
[2023-02-19 17:06] LABS: CALCIUM 8.8 mg/dL (8.5-10.1)
[2023-02-19 17:07] LABS: ALBUMIN 4.1 g/dl (3.4-5.0); BLOOD UREA NITROGEN 19.8 mg/dL (7-18)
[2023-02-19 17:12] LABS: BILIRUBIN,TOTAL 0.5 mg/dL (0.2-1); TOT PROT 7.3 g/dl (6.4-8.2)
[2023-02-19] MEDS ORDERED: ONDANSETRON 4 MG/2 ML VIAL ONE (17:34)
[2023-02-19] MEDS ORDERED: CEFAZOLIN SODIUM 2 GM in DEXTROSE 5%-WATER 100 ML IVPB ONE (17:45)
[2023-02-19] MEDS ORDERED: CEFAZOLIN SODIUM 2 GM VIAL ONE (18:00)
[2023-02-19 18:15] VITALS: RESP 18
[2023-02-19 22:21] VITALS: TEMP 98.6
[2023-02-19 23:09] VITALS: BP 122/78; PULSE 82
== END 2023-02-19 23:18 | disposition short-term general hospital (02) ==
LOC: JER 15:51
PROC: 3E03329 Introduction of Other Anti-infective into Peripheral Vein, Percutaneous Approach (ICD-10-PCS; principal; 2023-02-19)
PROC: 3E033GC Introduction of Other Therapeutic Substance into Peripheral Vein, Percutaneous Approach (ICD-10-PCS; 2023-02-19)
PROC: 3E033GC Introduction of Other Therapeutic Substance into Peripheral Vein, Percutaneous Approach (ICD-10-PCS; 2023-02-19)
PROC: 3E033GC Introduction of Other Therapeutic Substance into Peripheral Vein, Percutaneous Approach (ICD-10-PCS; 2023-02-19)
PROC: 3E0234Z Introduction of Serum, Toxoid and Vaccine into Muscle, Percutaneous Approach (ICD-10-PCS; 2023-02-19)
DX: M79.672 Pain in left foot (principal); S92.302B Fracture of unspecified metatarsal bone(s), left foot, initial encounter for open fracture; S93.325A Dislocation of tarsometatarsal joint of left foot, initial encounter; W20.8XXA Other cause of strike by thrown, projected or falling object, initial encounter; Z20.822 Contact with and (suspected) exposure to COVID-19
CPT/HCPCS: 0241U-QW; 36415; 73610-TC-LT-FY; 73630-TC-LT; 80053; 82550; 85025; 85610; 85730; 86850; 86900; 86901; 90715; 99285-25

== ENCOUNTER 2024-07-24 03:28 | Emergency (ER) | payer OTHER ==
[2024-07-24 03:36] VITALS: BP 109/75; PULSE 71; RESP 20; TEMP 98; BMI 27.9
[2024-07-24 05:38] LABS: POTASSIUM 3.9 mmol/L (3.5-5.1)
[2024-07-24 05:40] LABS: CALCIUM 9.3 mg/dL (8.5-10.1)
[2024-07-24 05:41] LABS: ALBUMIN 4.2 g/dl (3.4-5.0)
[2024-07-24 05:44] LABS: CREATININE 1.1 mg/dL (0.55-1.3)
[2024-07-24 05:45] LABS: BASO % 0.3 % (0-2.0); BILIRUBIN,TOTAL 0.6 mg/dL (0.2-1); EOS % 0.9 % (0-4.5); HEMATOCRIT 43.2 % (35.4-49); HEMOGLOBIN 14.2 GM/dL (11.7-16.9); MCH 30.3 pg (25.7-33.7); MCHC 32.9 g/dl (32.0-35.9); MEAN CELL VOLUME 92.1 fl (80-96); MEAN PLT VOLUME 9.5 fl (7.5-11.1); MONO % 7.4 % (3.8-10.2); NEUT % 68.4 % (42.8-82.8); PLATELET COUNT 211 10^3/uL (134-434); RBC 4.69 M/mm3 (4.00-5.60); RDW 13.6 % (11.9-15.9); TOT PROT 7.4 g/dl (6.4-8.2); WHITE BLOOD COUNT 8.7 K/mm3 (4.0-10.0)
== END 2024-07-24 09:08 | disposition home or self-care (01) ==
LOC: JER 03:28
DX: R00.2 Palpitations (principal); R06.02 Shortness of breath; R61 Generalized hyperhidrosis
CPT/HCPCS: 36415; 71046-TC-FY; 80053; 84484; 85025; 93005; 93010; 99285-25

== ENCOUNTER 2024-07-27 01:09 | Observation (INO) | payer OTHER ==
[2024-07-27] MEDS ORDERED: LORazepam 0.5 MG TABLET ONE (01:41)
[2024-07-27] MEDS: LORazepam 2 MG TABLET PO ONE (01:46)
[2024-07-27 02:18] LABS: BASO % 0.7 % (0-2.0); EOS % 1.1 % (0-4.5); HEMATOCRIT 39.7 % (35.4-49); HEMOGLOBIN 13.5 GM/dL (11.7-16.9); LYMPH % 32.2 % (8-40); MCH 30.3 pg (25.7-33.7); MCHC 33.9 g/dl (32.0-35.9); MEAN CELL VOLUME 89.5 fl (80-96); MEAN PLT VOLUME 9.9 fl (7.5-11.1); MONO % 8.3 % (3.8-10.2); NEUT % 57.7 % (42.8-82.8); PLATELET COUNT 239 10^3/uL (134-434); RBC 4.44 M/mm3 (4.00-5.60); WHITE BLOOD COUNT 6.6 K/mm3 (4.0-10.0)
[2024-07-27 02:19] LABS: URINE APPEARANCE CLEAR; URINE BILIRUBIN NEGATIVE (NEGATIVE); URINE COLOR YELLOW; URINE GLUCOSE (UA) NEGATIVE (NEGATIVE); URINE KETONE TRACE (NEGATIVE); URINE LEUK ESTERASE NEGATIVE (NEGATIVE); URINE NITRITE NEGATIVE (NEGATIVE); URINE PROTEIN NEGATIVE (NEGATIVE); URINE UROBILINOGEN 0.2 mg/dL (0.2-1.0)
[2024-07-27 02:27] LABS: URINE BARBITURATES NEGATIVE (NEGATIVE)
[2024-07-27 02:28] LABS: COCAINE, UR NEGATIVE (NEGATIVE); METHADONE, UR NEGATIVE (NEGATIVE); OPIATES, URI NEGATIVE (NEGATIVE); PHENCYCLIDINE,URINE NEGATIVE (NEGATIVE); URINE BENZODIAZEPINES NEGATIVE (NEGATIVE)
[2024-07-27 02:43] LABS: POTASSIUM 3.4 mmol/L (3.5-5.1)
[2024-07-27 02:44] LABS: CALCIUM 9.4 mg/dL (8.5-10.1)
[2024-07-27 02:45] LABS: BLOOD UREA NITROGEN 18.5 mg/dL (7-18)
[2024-07-27 02:57] LABS: URINE AMPHETAMINES NEGATIVE (NEGATIVE)
[2024-07-27] MEDS ORDERED: POTASSIUM CHLORIDE TABS 20 MEQ TABLET.ER (FP) PO ONE (03:40)
[2024-07-27] MEDS: POTASSIUM CHLORIDE TABS 20 MEQ TABLET.ER (FP) PO ONE (03:42)
[2024-07-27 05:07] VITALS: BMI 27.0
[2024-07-27 09:10] LABS: CALCIUM 9.5 mg/dl (8.5-10.1); POTASSIUM 4.1 mmol/L (3.5-5.1)
[2024-07-27 10:16] LABS: BASO % 0.4 % (0-2.0); EOS % 0.7 % (0-4.5); HEMATOCRIT 41.2 % (35.4-49); HEMOGLOBIN 13.5 GM/dL (11.7-16.9); LYMPH % 35.7 % (8-40); MCH 30.2 pg (25.7-33.7); MCHC 32.9 g/dl (32.0-35.9); MEAN CELL VOLUME 91.8 fl (80-96); MEAN PLT VOLUME 9.8 fl (7.5-11.1); MONO % 7.7 % (3.8-10.2); NEUT % 55.5 % (42.8-82.8); PLATELET COUNT 206 10^3/uL (134-434); RBC 4.48 M/mm3 (4.00-5.60); RDW 13.7 % (11.9-15.9); WHITE BLOOD COUNT 6.9 K/mm3 (4.0-10.0)
[2024-07-27 17:04] VITALS: BP 107/81; PULSE 86; RESP 14; TEMP 98.4
[2024-07-27] MEDS: ESCITALOPRAM OXALATE 10 MG TABLET PO SCH (17:08)
[2024-07-27] MEDS ORDERED: ATORVASTATIN CA 40 MG TABLET (FP) PO SCH (22:00)
== END 2024-07-27 17:28 | disposition home or self-care (01) ==
LOC: FER 01:09 → FM/S 03:14 → UNDOADMOB 03:27 → FM/S 03:27
PROVIDERS: ADMIT Internal Medicine
DX: F41.9 Anxiety disorder, unspecified (principal); F41.0 Panic disorder [episodic paroxysmal anxiety]; R55 Syncope and collapse; E78.5 Hyperlipidemia, unspecified; D64.9 Anemia, unspecified; K58.9 Irritable bowel syndrome, unspecified; K57.92 Diverticulitis of intestine, part unspecified, without perforation or abscess without bleeding; Z88.8 Allergy status to other drugs, medicaments and biological substances
CPT/HCPCS: 36415; 70450-TC; 80048; 80061; 80307; 81003; 82550; 82553; 83880; 84443; 84484; 85025; 93005; 93306-TC; 99285-25; G0378

== ENCOUNTER 2024-07-28 19:50 | Emergency (ER) | payer OTHER ==
[2024-07-28 19:56] VITALS: RESP 20; BMI 26.3
[2024-07-28 21:56] VITALS: BP 95/63; PULSE 66
[2024-07-28 21:57] VITALS: TEMP 97.9
== END 2024-07-28 22:26 | disposition home or self-care (01) ==
LOC: JERFT 19:50 → JER 19:50
DX: F41.9 Anxiety disorder, unspecified (principal)
CPT/HCPCS: 93005; 93010; 99284-25

== ENCOUNTER 2024-07-29 03:39 | Emergency (ER) | payer OTHER ==
[2024-07-29 04:24] VITALS: BP 118/76; PULSE 78; RESP 16; TEMP 98.6; BMI 25.0
[2024-07-29] MEDS ORDERED: ALPRAZolam 0.25 MG TABLET ONE (04:36)
[2024-07-29] MEDS: ALPRAZolam 1 MG TABLET PO PRN (04:39)
== END 2024-07-29 04:47 | disposition home or self-care (01) ==
LOC: FER 03:39
DX: F41.9 Anxiety disorder, unspecified (principal)
CPT/HCPCS: 99283-25